=== PATIENT | female | born 1940 | race Caucasian/White ===

== ENCOUNTER → 2016-04-06 | Day surgery (SDC) | payer OTHER ==
--- NOTE | 2016-04-07 14:23 | OP ---
DATE OF OPERATION: 04/06/2016 PREOPERATIVE DIAGNOSES: Right breast mass, 11 o'clock, 4 to 7 cm from the nipple, and right axillary node suspicious. POSTOPERATIVE DIAGNOSES: Right breast mass, 11 o'clock, 4 to 7 cm from the nipple, and right axillary node suspicious. PROCEDURE: Right ultrasound-guided core biopsy of the breast mass and axillary node with clip placement. ANESTHESIA: Local. ATTENDING SURGEON: Deirdre Morales MD ESTIMATED BLOOD LOSS: Minimal. COMPLICATIONS: None. PROCEDURE: Patient was made aware of the risks and benefits of the procedure and consented. She was placed in the supine position under sterile conditions with 1% lidocaine for local anesthesia. A small renetta was made in the skin. Using a 13-gauge suction biopsy device under ultrasound guidance via a lateral approach, the right breast mass underwent 10 cores which were then submitted to Pathology. Likewise, under ultrasound guidance a "U" clip was placed into the biopsy region. The right axilla was approached under sterile conditions with 1% lidocaine for local anesthesia. A small renetta was made in the skin. Using a 13-gauge suction biopsy device under ultrasound guidance, 6 cores were obtained and submitted to Pathology. Likewise, under ultrasound guidance a bow-tie clip was placed into the biopsy region. Well tolerated by patient. Steri-Strips and sterile bandages were then applied on the patient, having tolerated the procedure well. The patient will be contacted with the results. DEIRDRE MORALES M.D. [id number]
--- NOTE | 2016-04-07 14:47 | PATH ---
Surgical Pathology Report Patient Name: DIANA COPPOLA [facility]. Rec. #: [id number] /Age/Gender: 1940 (Age: 75) / F Account: [id number] Location: [facility] Taken: 04/06/2016 Received: 04/06/2016 Reported: 04/07/2016 Physicians: Deirdre Morales M.D. Specimen(s) Received A: BREAST CORE BIOPSY RIGHT 11:00 4-7CMFN B: RIGHT AXILLARY LYMPH NODE Clinical History Highly suspicious/malignant Final Diagnosis A. 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 B. LYMPH NODE, RIGHT AXILLARY, NEEDLE CORE BIOPSY: METASTATIC POORLY DIFFERENTIATED INVASIVE DUCTAL CARCINOMA. Results of Estrogen Receptor (ER) and Progesterone Receptor (MA) studies performed on block "B1" at [facility] are as follows: ER (clone [id number] mouse monoclonal antibody by [employer]): 0% nuclear staining (Negative). MA (clone16 mouse monoclonal antibody by [employer]): 0% nuclear staining (Negative). Positive and negative controls (internal if applicable) show appropriate results. Formalin fixation time is within current ASCO/CAP recommendations for ER, MA and Her2 testing. Comment: This case was discussed with Dr. Deirdre Morales at 11 AM on April 07, 2016. Assays for HER-2 and Ki67 are pending, and a report will follow. Electronically Signed Conner Mcleod M.D. Addendum Reported: 04/08/2016 Addendum Diagnosis Results of Her2 (IHC) & Ki-67 studies performed on block "B" at [place], [place] ([id number]) are as follows: Her2 IHC (EP3 from [employer], formerly known as [id number], using Fisher Polymer Refine detection kit): 3+ POSITIVE Ki-67: ~60% (High proliferative index) Positive and negative controls (internal if applicable) show appropriate results. Conner Mcleod M.D. Gross Description A. Received in formalin labeled "right breast core 11:00, 4-7 cmfn," are 8 mcgowan-yellow, cylindrical portions of fibroadipose tissue ranging from 0.8-1.6 cm. in length and averaging 0.1 cm. in diameter. The specimen is submitted in toto in one cassette. B. Received in formalin labeled "right axillary lymph node #1," is a 2.0 x 1.5 x 0.2 cm. aggregate of multiple mcgowan-yellow, irregular to cylindrical portions of fibroadipose tissue. The formalin is filtered and the specimen is entirely submitted in one cassette. Time to formalin fixation: Not indicated Total formalin fixation time: Not indicated but between 6 and 24 hours. [facility]04/06/2016
== END | disposition home or self-care (01) ==
LOC: FRADUS-SUR 14:37
PROVIDERS: ATTEND Surgery Surgical Oncology
PROC: 0HBT3ZX Excision of Right Breast, Percutaneous Approach, Diagnostic (ICD-10-PCS; principal; 2016-04-06)
PROC: 07B Lymphatic and Hemic Systems, Excision (ICD-10-PCS; 2016-04-06)
PROC: BH47ZZZ Ultrasonography of Upper Extremity (ICD-10-PCS; 2016-04-06)
DX: N63 Unspecified lump in breast (principal); R59.9 Enlarged lymph nodes, unspecified; C50.411 Malignant neoplasm of upper-outer quadrant of right female breast; C77.3 Secondary and unspecified malignant neoplasm of axilla and upper limb lymph nodes
CPT/HCPCS: 19083; 76942-TC; 87899; 88305-TC; 88342-TC; A4648

== ENCOUNTER 2016-10-07 07:06 | Inpatient (IN) | payer OTHER ==
--- NOTE | 2016-09-23 09:35 | HP ---
Admitting History and Physical - Primary Care Physician PCP: Deirdre Morales - Admission Chief Complaint: right breast cancer History of Present Illness: Patient is a 75 yo female who noted a right breast mass in the upper outer quad on self exam in March 2016. Patient underwent a mammo at this time which was c/w two poorly defined masses in the UOQ with associated calcifications as well as skin thickening. Followup US revealed a 7.5 cm mass at 10 oclock as well as multiple right axillary enlarged lymph nodes. Patient underwent an US core bx which was c/w poorly differentiated invasive ductal with necrosis as well as right axillary metastatic invasive ductal carcinoma. Patient was then referred to a medical oncologist for a metastatic workup as well as neoadjuvant chem. Patient was recently seen S/P neoadjuvant chemo. Followup mammo and US again noted a 7 cm mass c/w the known cancer (10-12 oclock) as well as right axillary adenopathy. 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 Patient is now presenting for right mastectomy, sentinel node bx, possible andx without reconstruction. History Source: Patient Limitations to Obtaining History: No Limitations - Past Medical History Pulmonary: Yes: Pneumonia (H/O pnemonia uses inhaler prn) - Smoking History Smoking history: Former smoker Have you smoked in the past 12 months: No - Alcohol/Substance Use Hx Alcohol Use: Yes (social) Home Medications - Allergies Allergies/Adverse Reactions: Allergies Allergy/AdvReac Type Severity Reaction Status Date / Time Penicillins Allergy Unverified 03/09/12 13:05 - Home Medications Home Medications (free text): albuterol prn Family Disease History - Family Disease History Family Disease History: CA: Father (Lung ca 69 ), Sister (Breast ca 42 ) Other Family History: paternal aunt with ? breast cancer Physical Examination Constitutional: Yes: Well Nourished, Calm Respiratory: Yes: CTA Bilaterally Gastrointestinal: Yes: Other (No HSM noted) Breast(s): Yes: Other (symmetrical without skin changes or nipple discharge. Palpable right UOQ mass without deep fixation noted.) Problem List - Problems (1) Breast cancer, right Code(s): C50.911 - MALIGNANT NEOPLASM OF UNSP SITE OF RIGHT FEMALE BREAST Qualifiers: Breast location: overlapping sites of breast Patient sex: female Assessment/Plan Plan: Right mastectomy, right sentinel node bx, lymphoscintogram, needle localization of right axillary LN, possible ANDx
[2016-10-01 13:03] VITALS: BMI 28.3
[2016-10-07] MEDS ORDERED: SCOPOLAMINE HYDROBROMIDE 1 PATCH PATCH.TD72 ONE (12:12)
[2016-10-07] MEDS ORDERED: MIDAZOLAM HCL 2 MG/2 ML SINGLE DOSE VIAL ONE (12:12)
[2016-10-07] MEDS ORDERED: ONDANSETRON 4 MG/2 ML VIAL ONE (12:17)
[2016-10-07] MEDS ORDERED: DEXAMETHASONE SOD PHOSPHATE/PF 10 MG/ML SDV ONE (12:17)
[2016-10-07] MEDS ORDERED: BUPIVACAINE HCL/PF (5 MG/ML) 30 ML VIAL IJ ONE (12:18)
[2016-10-07] MEDS ORDERED: LIDOCAINE 1%/EPI 1:100000 (20 ML MULTI DOSE VIAL) ONE ×2 (12:26→12:34)
[2016-10-07] MEDS ORDERED: BUPIVACAINE HCL/PF 2.5 MG/ML - 30 ML VIAL IJ ONE (12:26)
[2016-10-07] MEDS ORDERED: CLINDAMYCIN PHOSPHATE 600 MG/4 ML VIAL ONE (13:06)
[2016-10-07] MEDS ORDERED: ONDANSETRON 4 MG/2 ML VIAL IVPUSH PRN (13:17)
[2016-10-07] MEDS ORDERED: LACTATED RINGERS SOLUTION 1,000 ML IV SCH (13:30)
[2016-10-07] MEDS ORDERED: HYDROmorphone HCL/PF 1 MG/ML VIAL (FOR PYXIS CHARGING ONLY) ONE (13:37)
[2016-10-07] MEDS ORDERED: ACETAMINOPHEN 325 MG TABLET (FP) PO PRN (15:18)
[2016-10-07] MEDS ORDERED: ONDANSETRON 4 MG/2 ML VIAL IVPB PRN (15:18)
[2016-10-07] MEDS ORDERED: ZOLPIDEM TARTRATE 5 MG TABLET PO PRN (15:18)
[2016-10-07] MEDS ORDERED: oxyCODONE HCL 5 MG TABLET PO PRN ×2 (15:25)
[2016-10-07] MEDS ORDERED: DEXTROSE 5%-0.45% SALINE 1,000 ML IV SCH (15:30)
[2016-10-07] MEDS ORDERED: oxyCODONE HCL 10 MG SUSTAINED ACTING TABLET PO SCH (22:00)
[2016-10-08 08:32] LABS: MCH 34.5 pg (25.7-33.7); MCHC 34.9 g/dl (32.0-36.0); MEAN CELL VOLUME 98.9 fl (80-96); MEAN PLT VOLUME 8.3 fl (7.5-11.1); PLATELET COUNT 285 K/MM3 (134-434); RDW 12.3 % (11.6-15.6); WHITE BLOOD COUNT 19.3 K/mm3 (4.0-10.8)
[2016-10-08] MEDS: HEPARIN NA (PORCINE) 5,000 UNITS/ML 1ML VIAL SQ SCH ×2 (09:58→21:32)
[2016-10-08] MEDS: LEVOFLOXACIN 500 MG IVPB 100 ML IVPB SCH (09:58)
--- NOTE | 2016-10-08 11:50 | PN ---
Progress Note, Physician History of Present Illness: POD #1 s/p right modified radical mastectomy - Current Medication List Current Medications: Active Medications Acetaminophen (Tylenol -) 650 mg PO Q4H PRN PRN Reason: FEVER Fentanyl (Sublimaze Injection -) 50 mcg IVPUSH [id number] PRN PRN Reason: PAIN Stop: 10/10/16 13:18 Heparin Sodium (Porcine) (Heparin -) 5,000 unit SQ BID [facility] Last Admin: 10/08/16 09:58 Dose: 5,000 unit Lactated Ringer's (Lactated Ringers Solution) 1,000 mls @ 125 mls/hr IV ASDIR GENO Dextrose/Sodium Chloride (D5-1/2ns -) 1,000 mls @ 100 mls/hr IV ASDIR GENO Levofloxacin (Levaquin 500 Mg Premixed Ivpb -) 100 mls @ 100 mls/hr IVPB DAILY [facility] Last Admin: 10/08/16 09:58 Dose: 100 mls/hr Ondansetron HCl (Zofran Injection) 4 mg IVPB Q6H PRN PRN Reason: NAUSEA AND/OR VOMITING Oxycodone HCl (Roxicodone -) 5 mg PO Q3H PRN PRN Reason: PAIN LEVEL 1-5 Oxycodone HCl (Roxicodone -) 10 mg PO Q3H PRN PRN Reason: PAIN LEVEL 6-10 Zolpidem Tartrate (Ambien -) 5 mg PO HS PRN PRN Reason: Insomnia - Objective Vital Signs: Vital Signs Temperature 97.7 F 10/08/16 06:00 Pulse Rate 82 10/08/16 06:00 Respiratory Rate 20 10/08/16 06:00 Blood Pressure 105/56 10/08/16 06:00 O2 Sat by Pulse Oximetry (%) 95 10/08/16 06:09 Constitutional: Yes: Well Nourished, No Distress Wound/Incision: Yes: Clean/Dry (JPs with serosanguineous effluent, functioning normally. Skin flaps viable, no signs of infection.) Neurological: Yes: Alert, Oriented Labs: CBC, BMP 10/08/16 07:30 Assessment/Plan Pt doing well s/p right MRM Encourage ambulation Teach MATT management Possible discharge tomorrow AM
[2016-10-09 06:30] VITALS: BP 112/49; PULSE 86; TEMP 98.1
[2016-10-09] MEDS: HEPARIN NA (PORCINE) 5,000 UNITS/ML 1ML VIAL SQ SCH (10:00)
[2016-10-09] MEDS: LEVOFLOXACIN 500 MG IVPB 100 ML IVPB SCH (10:00)
--- NOTE | 2016-10-09 10:18 | PN ---
Progress Note, Physician Chief Complaint: S/P right MRM POD#2 History of Present Illness: Patient seen this am with Dr. Morales and is without complaints and doing well. - Current Medication List Current Medications: Active Medications Acetaminophen (Tylenol -) 650 mg PO Q4H PRN PRN Reason: FEVER Fentanyl (Sublimaze Injection -) 50 mcg IVPUSH [id number] PRN PRN Reason: PAIN Stop: 10/10/16 13:18 Heparin Sodium (Porcine) (Heparin -) 5,000 unit SQ BID [facility] Last Admin: 10/08/16 21:32 Dose: 5,000 unit Lactated Ringer's (Lactated Ringers Solution) 1,000 mls @ 125 mls/hr IV ASDIR GENO Dextrose/Sodium Chloride (D5-1/2ns -) 1,000 mls @ 100 mls/hr IV ASDIR GENO Levofloxacin (Levaquin 500 Mg Premixed Ivpb -) 100 mls @ 100 mls/hr IVPB DAILY [facility] Last Admin: 10/08/16 09:58 Dose: 100 mls/hr Ondansetron HCl (Zofran Injection) 4 mg IVPB Q6H PRN PRN Reason: NAUSEA AND/OR VOMITING Oxycodone HCl (Roxicodone -) 5 mg PO Q3H PRN PRN Reason: PAIN LEVEL 1-5 Oxycodone HCl (Roxicodone -) 10 mg PO Q3H PRN PRN Reason: PAIN LEVEL 6-10 Zolpidem Tartrate (Ambien -) 5 mg PO HS PRN PRN Reason: Insomnia - Objective Vital Signs: Vital Signs Temperature 98.1 F 10/09/16 06:00 Pulse Rate 86 10/09/16 06:00 Respiratory Rate 19 10/09/16 06:00 Blood Pressure 112/49 10/09/16 06:00 O2 Sat by Pulse Oximetry (%) 98 10/09/16 06:28 Constitutional: Yes: Well Nourished, Calm Breast(s): Yes: Other (Right chest flap with ecchymosis noted otherwise incision is clean with dermabond. MATT x 2 with serosanginous discharge noted.) Labs: CBC, BMP 10/08/16 07:30 Problem List - Problems (1) Breast cancer, right Code(s): C50.911 - MALIGNANT NEOPLASM OF UNSP SITE OF RIGHT FEMALE BREAST Qualifiers: Breast location: overlapping sites of breast Patient sex: female Assessment/Plan Plan: Discharge today as per Dr. Morales Home with pain meds and axbx Teach MATT monitoring VNS to be established F/U in one week in the office
--- NOTE | 2016-10-09 10:23 | DS ---
Physical Examination Vital Signs: Vital Signs Temperature 98.1 F 10/09/16 06:00 Pulse Rate 86 10/09/16 06:00 Respiratory Rate 19 10/09/16 06:00 Blood Pressure 112/49 10/09/16 06:00 O2 Sat by Pulse Oximetry (%) 98 10/09/16 06:28 Constitutional: Yes: Well Nourished, Calm Breast(s): Yes: Other (Right chest flap with ecchymosis. Incision is clean without discharge. MATT with serosanginous discharge) Labs: CBC, BMP 10/08/16 07:30 Discharge Summary Reason For Visit: RIGHT BREAST CA Current Active Problems Breast cancer, right (Acute) Condition: Good - Instructions Diet, Activity, Other Instructions: BREAST SURGERY INSTRUCTIONS Kenneth Avila M.D., YAA Avila M.D., YAA Coates M.D., FACS 1. Please call the office at to make a follow up appointment with your surgeon. This number can be also used for any urgent issues you may have. 2. Call us immediately if any of the following occur: *Bleeding from the incision or drain site (a small amount is normal) *Fever or chills *Redness and worsening tenderness around the surgical site *Drainage of pus or fluid from the incision or drain site 3. You may change the surgical dressing two (2) days after your surgery, and may shower then. If you have drains, you may shower after they have been removed, until then take a sponge bath. 4. It is normal for there to be some bruising and tenderness around the surgical site, and the breast may also be firm in this area. 5. Please wear a comfortable bra (sports or surgical bra) all day and all night until your first follow-up visit with your surgeon. 6. The pain medicine you have been prescribed may make you constipated; make sure you drink plenty of water. You may use an over the counter laxative if needed. 7. You may resume your normal diet after surgery, although you may want to avoid rich foods for the first twenty-four (24) hours after surgery. Alcoholic drinks should be avoided while taking the prescribed pain medicine. 8. You may resume normal activities as long as there is no discomfort, but do not do upper body exercises until after your follow-up appointment. Do not lift anything heavier than a large phone book. You may resume driving once you have stopped taking the prescribed pain medicine and feel comfortable doing arm movements. Referrals: Deirdre Morales MD [Staff Physician] - Disposition: HOME - Home Medications Comprehensive Discharge Medication List: Ambulatory Orders Levofloxacin [Levaquin] 500 mg PO DAILY 20 Days 10/09/16 Oxycodone HCl/Acetaminophen [Percocet 5-325 mg Tablet -] 1 - 2 tab PO Q6H #30 tablet MDD 6 10/09/16
--- NOTE | 2016-10-10 07:06 | OP ---
DATE OF OPERATION: 10/07/2016 PREOPERATIVE DIAGNOSIS: Right breast cancer with axillary metastasis. PROCEDURE: Right modified radical mastectomy with right sentinel node biopsy, no reconstruction. ANESTHESIA: General intubated. ATTENDING SURGEON: Lili Coates MD JUVENILE PROBATION OFFICER: LAVINIA Garcia ESTIMATED BLOOD LOSS: 200 mL. COMPLICATIONS: None. DESCRIPTION OF PROCEDURE: The patient is made aware of the risks and benefits of the procedure and consented. Preoperatively, she went to nuclear medicine where technetium was injected for lymphatic mapping as well as radiology where a wire was placed next to the index axillary node. She was then placed in supine position on the operating room table. After general anesthesia was induced, the patient was intubated. Then 2.5 mL of 1% Isosulfan Blue was locally infiltrated into the peritumoral tissues. The operative site was then prepped and draped in the usual sterile fashion. Waiting approximately 10 minutes with gently manual compression, a curvilinear incision was made in the right axilla. Using blunt and sharp dissection, tissues were dissected down to the wire. The wire was withdrawn through the puncture site into the wound, and tissues were widely excised. In addition, there were other firm lymph nodes that were suspicious for metastasis. These were all submitted and incidentally were also noted to be hot with the Neoprobe. Frozen sections reported as positive for metastasis. Including this prior incision, elliptical incision was made around the nipple and skin overlying the breast cancer after injecting the breast with a dilute solution of 1% lidocaine with epinephrine. Using the face lift scissors, flaps were made superior to the clavicle, inferior to the inframammary fold, and lateral to the latissimus dorsi. Using electrocautery, the breast tissue was taken off the pectoralis muscle extending laterally to the edge of the pectoralis muscle. The clavipectoral fascia was incised revealing the axillary vein. Laterally, the long thoracic nerve was identified and retracted medially along its length. Laterally, the thoracodorsal trunk was also identified, and the tissues between the two were bluntly and sharply dissected free inferiorly including all of the axillary node and tissue. The right breast was then submitted with a short superior long lateral labelled as right modified radical mastectomy. Looking at the high axillary nodes, there were some firm, suspicious nodes, which were bluntly and sharply surgically excised and submitted as right axillary high nodes. The wound was copiously irrigated with normal saline. Hemostasis maintained by electrocautery and hemoclip. Investigation of the axilla revealed a long thoracic and thoracodorsal trunk were left intact. Via 2 inferior stab wounds, 2 Robin-Landaverde drains were placed and sutured to the skin with 3-0 silk. The skin was then closed with interrupted 3-0 Vicryl followed by running subcuticular 4-0 Monocryl. Dermabond as well as a sterile dressing with a compression bra were then applied, and the patient having tolerated the procedure well, was transferred to the recovery room in excellent condition. LILI HUFFMAN M.D. [id number]
--- NOTE | 2016-10-11 12:50 | PATH ---
Surgical Pathology Report Patient Name: DIANA COPPOLA [facility]. Rec. #: [id number] /Age/Gender: 1940 (Age: 75) / F Account: [id number] Location: [facility] Taken: 10/07/2016 Received: 10/07/2016 Reported: 10/11/2016 Physicians: Deirdre Morales M.D. Specimen(s) Received A: RIGHT AXILLARY SENTINEL NODES. FS B: HIGH RIGHT AXILLARY NODES C: RIGHT MODIFIED RADICAL MASTECTOMY Clinical History Mastectomy: Invasive carcinoma Intraoperative Consult Diagnosis A.Right axillary sentinel nodes, frozen section: Two lymph nodes, positive for metastatic carcinoma (2/2). [place] 10/07/16 Final Diagnosis A. AXILLARY SENTINEL NODES, RIGHT, EXCISION (FS): TWO LYMPH NODES, POSITIVE FOR METASTATIC CARCINOMA (2/2); METASTATIC CARCINOMA ALMOST ENTIRELY REPLACES THE INVOLVED LYMPH NODES, WITH THE LARGEST FOCI OF METASTATIC CARCINOMA INVOLVING THE TWO NODES MEASURING 9 MM AND 7 MM IN GREATEST DIMENSION, RESPECTIVELY (MACROMETASTASES). EXTRANODAL EXTENSION IS PRESENT. B. HIGH AXILLARY NODES, RIGHT, EXCISION: METASTATIC CARCINOMA INVOLVING ONE OF SIX LYMPH NODES (1/6); THE LARGEST FOCUS OF METASTATIC CARCINOMA MEASURES 1 CM IN GREATEST DIMENSION (MACROMETASTASIS). EXTRANODAL EXTENSION IS PRESENT. C. BREAST, RIGHT, MODIFIED RADICAL MASTECTOMY: INVASIVE DUCTAL CARCINOMA, POORLY DIFFERENTIATED (TUBULE SCORE: 3/3, NUCLEAR GRADE: 2/3, MITOTIC SCORE: 2/3; TOTAL VARUN SCORE: 8/9), MEASURING 5.8 CM IN GREATEST DIMENSION (GROSS MEASUREMENT). FOCAL AREAS OF DENSE HYALINIZING FIBROSIS (~10% OF THE TUMOR BED TISSUE) ARE PRESENT ADMIXED WITH THE PREDOMINANTLY VIABLE CARCINOMA, SUGGESTIVE OF MINIMAL TREATMENT-RELATED CHANGES. FOCAL DUCTAL CARCINOMA IN SITU (DCIS), SOLID TYPE, HIGH NUCLEAR GRADE IS PRESENT ADMIXED WITH INVASIVE CARCINOMA A MINOR COMPONENT. SURGICAL MARGINS ARE UNINVOLVED BY CARCINOMA; CARCINOMA IS AT 1 CM FROM THE CLOSEST (DEEP) MARGIN; SKELETAL MUSCLE IS PRESENT AT THE DEEP MARGIN AND IS UNINVOLVED BY CARCINOMA. NIPPLE (INVERTED) AND SKIN ARE UNINVOLVED BY CARCINOMA. LYMPHOVASCULAR INVASION IS IDENTIFIED. METASTATIC CARCINOMA INVOLVING FIVE OF TWENTY-ONE AXILLARY LYMPH NODES (5/21); ALL FIVE LYMPH NODES ARE ALMOST ENTIRELY REPLACED BY METASTATIC CARCINOMA (MACROMETASTASES), WITH THE LARGEST FOCUS OF METASTATIC CARCINOMA MEASURING 1.4 CM IN GREATEST DIMENSION. EXTRANODAL EXTENSION IS PRESENT. PATHOLOGIC STAGE (ypTNM): ypT3 ypN2a. SEE ALSO INVASIVE CARCINOMA CASE SUMMARY BELOW. Comments Breast Invasive Carcinoma: Surgical Pathology Cancer Case Summary Based on AJCC/UICC TNM, 7th edition Procedure _X_ Total mastectomy (including nipple and skin) Lymph Node Sampling _X_ Kermit lymph node(s) _X_ Axillary dissection Specimen Laterality _X_ Right Tumor Size: Size of Largest Invasive Carcinoma: 5.8 cm Tumor Focality _X_ Single focus of invasive carcinoma Macroscopic and Microscopic Extent of Tumor Skin _X_ Invasive carcinoma does not invade into the dermis or epidermis Nipple _X_ DCIS does not involve the nipple epidermis Ductal Carcinoma In Situ (DCIS) _X_ DCIS is present _X_ as a minor component (< 25% of tumor) Histologic Type of Invasive Carcinoma : _X_ Invasive carcinoma of no special type (ductal, not otherwise specified) Histologic Grade: ([place] Histologic Score) Tubular Differentiation _X_ Score 3 Nuclear Pleomorphism _X_ Score 3 Mitotic Rate _X_ Score 2 Overall Grade _X_ Grade 3: scores of 8 or 9 (poorly differentiated) Margins _X_ Margins uninvolved by invasive carcinoma Distance from closest margin: 1.0 cm from deep margin _X_ Margins uninvolved by DCIS Distance from closest margin: > 1 cm from deep margin Lymph-Vascular Invasion _X_ Present Lymph Nodes Total number of lymph nodes examined (sentinel and nonsentinel): 29 Number of sentinel lymph nodes examined: 2 Number of lymph nodes with macrometastases ( > 2 mm): 8 Number of lymph nodes with micrometastases (>0.2 mm to 2 mm and/or >200cells):0 Number of lymph nodes with isolated tumor cells (=0.2 mm and =200 cells): 0 Size of largest metastatic deposit (if present): 1.4 cm Extranodal Extension _X_ Present Pathologic Staging (pTNM) Primary Tumor (Invasive Carcinoma): ypT3 Regional Lymph Nodes (pN): ypN2a Biomarker Studies Results of ER, WI, Her2 & Ki67 studies will be reported separately in an addendum. Electronically Signed Selene Espinal M.D. Addendum Reported: 10/22/2016 Addendum Diagnosis Results of ER and WI studies performed on block C6 at [facility] are as follows: ER (clone [id number] mouse monoclonal antibody by [employer]): 0 % nuclear (Negative). WI (clone16 mouse monoclonal antibody by [employer]) : 0 % nuclear staining (Negative). Results of Her2 IHC, Ki67 and FISH studies performed on block C6 at [place], [place] ([id number] and [id number]) are as follows: Her2 : IHC (EP3 from [employer], formerly known as [id number], using Fisher Polymer Refine detection kit): 1+ (Negative). Ki67: ~60% (High). Her2 (FISH): Her2: 2.7 CEP17: 2.2 Ratio: 1.2 Interpretation: Negative. Positive and negative controls (internal if applicable) show appropriate results. Formalin fixation and cold ischemic times are within current ASCO/CAP recommendations for ER, WI and Her2 testing. Selene Espinal M.D. Gross Description A. Received fresh for frozen section evaluation, labeled "right axillary sentinel nodes" are two lymph nodes with attached adipose tissue, measuring 1.5 x 1.0 x 0.4 cm and 0.8 x 2.7 x 0.3 cm. The lymph nodes are bisected and frozen section is performed on one half of each lymph node. The specimen is entirely submitted in four cassettes as follows: FSA1, FSA2: frozen section residues of the two lymph nodes; A3, A4: remaining halves of the two lymph nodes. B. Received in formalin labelled "high right axillary nodes" is a 4.5 x 2.8 x to 1.4 cm aggregate of yellow fatty tissue containing 6 possible lymph nodes. The largest of these measures 1.7 cm in greatest dimension, and has an indurated rosario cut surface grossly consistent with metastatic carcinoma. All the lymph nodes are submitted as follows: B1- B4: one bisected lymph node, each; B5:2 possible lymph nodes. C. Received in formalin, labeled "right modified radical mastectomy," is a 1302 gram, 22 x 20 x 4.5 cm right mastectomy specimen with a short suture marking the superior aspect and a long suture marking the lateral aspect of the specimen, per the surgeon. The overlying ellipse of skin measures 19 x 12.5 cm and contains a nipple and areola. The nipple is inverted. An attached 10 x 10 x 2 5 cm portion of fat consistent with axillary tissue is present. The deep margin is inked black and the anterior soft tissue margin is inked blue. A palpable mass is present in the upper outer quadrant (UOQ) underlying the skin. The specimen is serially sectioned from lateral to medial. Sectioning reveals a 5.8 x 3.7 x 3.2 cm firm mass in the UOQ. The mass is at 0.7 cm from the deep margin and at 2.2 cm from the overlying skin. Remaining breast tissue is comprised of scant fibrous tissue interspersed with adipose tissue. Examination of the axillary tissue reveals multiple possible lymph nodes some of which contain grossly obvious tumor. Also present within the specimen container is a 9 x 9 x 3 cm aggregate of portions of skin with attached yellow adipose tissue. Well Testing Operator sections are submitted in 21 cassettes as follows: 1& 2: nipple, 3: skin, 4: tumor with deep margin, 5-7: u.s. representative sections of tumor, 8:uppe outer quadrant, 9: lower outer quadrant, 10: upper inner quadrant, 11: lower inner quadrant, 12-14: u.s. representative sections of positive lymph nodes (one lymph node per cassette), 15-20: multiple possible lymph nodes, 21-u.s. representative sections from additional tissue within specimen container. [facility]/10/08/2016 Time to formalin fixation: 10 minutes Total formalin fixation time: Approximately 28 hours. [facility]/10/08/2016
== END 2016-10-09 11:25 | disposition home health service (06) | DRG 580 ==
LOC: FM/S 07:06
PROVIDERS: ADMIT Surgery Surgical Oncology; ATTEND Surgery Surgical Oncology
PROC: 0HTT0ZZ Resection of Right Breast, Open Approach (ICD-10-PCS; principal; 2016-10-07 13:14)
PROC: 07B50ZX Excision of Right Axillary Lymphatic, Open Approach, Diagnostic (ICD-10-PCS; 2016-10-07 13:14)
DX: C50.911 Malignant neoplasm of unspecified site of right female breast (principal); C79.89 Secondary malignant neoplasm of other specified sites; Z87.891 Personal history of nicotine dependence
CPT/HCPCS: 19281; 36415; 78195-TC; 85027; 88307-TC; 88331-TC; 94010; A9541; J1644

== ENCOUNTER 2017-04-23 17:22 | Emergency (ER) | payer OTHER ==
[2017-04-23 17:39] VITALS: PULSE 96; TEMP 97.8; BMI 30.2
--- NOTE | 2017-04-23 17:50 | PDOC ---
History of Present Illness - History of Present Illness Initial Comments: 04/23/17 19:02 Patient is a 76 F who was BIBA from [facility] hematology oncology clinic, with PMHx of hypertension and breast cancer, who presents for an allergic reaction s/p platelet transfusion. Patient went to see her oncologist today who was going to begin additional chemo. Patient was found to have low platelet count so they began transfusion. Patient reports immediately experiencing itchy skin and ears in addition to wheezing. She was administered Benadryl and steroids intravenously at the office. Symptoms resolved, however she was still concerned the symptoms could reappear and wanted to be checked in the ER. Family History: Lung cancer, breast cancer diabetes. Surgical Hx: Chemo -->right mastectomy (August 2016) radiation Social Hx: former smoker, social EtOH use. <Arlen Gaffney - Last Filed: 04/23/17 19:03> <Lloyd Gomez - Last Filed: 04/24/17 07:35> - General Chief Complaint: Allergic Reaction Stated Complaint: allergic reaction Time Seen by Provider: 04/23/17 17:36 Past History <Arlen Gaffney - Last Filed: 04/23/17 19:03> - Past Medical History Anemia: No Asthma: No Cancer: Yes (Right Breast) Cardiac Disorders: No CVA: No COPD: No CHF: No Dementia: No Diabetes: No GI Disorders: No Disorders: No HTN: No Hypercholesterolemia: No Liver Disease: No Seizures: No Thyroid Disease: No - Surgical History Abdominal Surgery: No Appendectomy: No Cardiac Surgery: No Cholecystectomy: No Lung Surgery: No Neurologic Surgery: No Orthopedic Surgery: No - Suicide/Smoking/Psychosocial Hx Smoking History: Never smoked Have you smoked in the past 12 months: No Hx Alcohol Use: Yes (occasional) Drug/Substance Use Hx: No Substance Use Type: None Hx Substance Use Treatment: No <Lloyd Gomez - Last Filed: 04/24/17 07:35> - Past Medical History Allergies/Adverse Reactions: Allergies Allergy/AdvReac Type Severity Reaction Status Date / Time Penicillins Allergy Verified 04/23/17 17:23 adhesive tape Allergy Uncoded 10/01/16 13:09 shellfish Allergy Uncoded 10/01/16 12:56 Home Medications: Ambulatory Orders NK [No Known Home Medication] 04/23/17 Review of Systems - Review of Systems Comments:: 04/23/17 19:03. CONSTITUTIONAL: Absent: fever, no chills, no fatigue EYES: Absent: visual changes ENT: Absent: ear pain, no sore throat CARDIOVASCULAR: Absent: chest pain, no palpitations RESPIRATORY: Absent: cough, no SOB, hemoptysis GI: Absent: abdominal pain, no nausea, no vomiting, no constipation, no diarrhea, no bloody stools. GENITOURINARY: Absent: dysuria, no frequency, no hematuria MUSCULOSKELETAL: Absent: back pain, no arthralgia, no myalgia SKIN: Present:Petechial rash on the arms and legs (several weeks) <Arlen Gaffney - Last Filed: 04/23/17 19:03> *Physical Exam - Vital Signs Last Vital Signs Temp Pulse Resp BP Pulse Ox 97.8 F 96 H 16 135/77 97 04/23/17 17:23 04/23/17 17:23 04/23/17 17:23 04/23/17 17:49 04/23/17 17:23 - Physical Exam Comments: GENERAL: Well developed, well nourished. Awake, alert and oriented. In no acute distress. Asymptomatic at present. HEENT: Normocephalic, atraumatic. PERRLA, EOMI. No conjunctival pallor. Sclera are non- icteric. Moist mucous membranes. Oropharynx is clear with no sign of swelling or edema. NECK: Supple without mass. Full ROM. No JVD. Carotid pulses 2+ and symmetric, without bruits. No thyromegaly. No lymphadenopathy. Denies irritations, itching , or swelling of the throat, lips, or face. CARDIOVASCULAR: Regular rate and rhythm. No murmurs, rubs, or gallops. No chest tightness. Distal pulses are 2+ and symmetric. PULMONARY: No evidence of respiratory distress. Lungs clear to auscultation bilaterally. No wheezing, rales or rhonchi. ABDOMINAL: Soft. Non-tender. Non-distended. No rebound or guarding. No organomegaly. Normoactive bowel sounds. MUSCULOSKELETAL Normal range of motion at all joints. No bony deformities or tenderness. No CVA tenderness. EXTREMITIES: No cyanosis. No clubbing. No edema. No calf tenderness. SKIN: Warm and dry. Normal capillary refill. No rashes. No jaundice. Scattered petechiae over arms and legs. Some excoriations.no sign of infection NEUROLOGICAL: Alert, awake, appropriate. Cranial nerves 2-12 intact. No deficits to light touch and temperature in face, upper extremities and lower extremities. No motor deficits in the in face, upper extremities and lower extremities. Normoreflexic in the upper and lower extremities. Normal speech. Toes are downgoing bilaterally. Gait is normal without ataxia. PSYCHIATRIC: Cooperative. Good eye contact. Appropriate mood and affect. <Arlen Gaffney - Last Filed: 04/23/17 19:03> - Vital Signs Last Vital Signs Temp Pulse Resp BP Pulse Ox 97.8 F 96 H 16 139/104 97 04/23/17 17:23 04/23/17 17:23 04/23/17 17:23 04/23/17 17:23 04/23/17 17:23 <Lloyd Gomez - Last Filed: 04/24/17 07:35> ED Treatment Course - LABORATORY CBC & Chemistry Diagram: 04/23/17 18:00 - ADDITIONAL ORDERS Additional order review: 04/23/17 18:00 RBC 3.80 D MCV 93.8 MCHC 36.0 RDW 11.1 L MPV 5.3 L Neutrophils % No Result Required. Lymphocytes % No Result Required. <Arlen Gaffney - Last Filed: 04/23/17 19:03> - LABORATORY CBC & Chemistry Diagram: 04/23/17 18:00 <Lloyd Gomez - Last Filed: 04/24/17 07:35> Medical Decision Making - Medical Decision Making 04/24/17 07:32 Patient had a platelet transfusion in the office of her oncologist today. She experienced in early transfusion reaction consisting of heat and itching of her ears and skin, and mild wheezing. She was administered Benadryl and steroids intravenously, she improved, and she was sent home from the office. However, she was concerned that the symptoms could recur, and presented to the emergency room for further evaluation and treatment She was asymptomatic at the time of presentation. There was no swelling edema of the oropharynx, lips, or face. There was no irritation or discomfort in the throat. There was no itching or skin rash. There was no respiratory distress, chest tightness, or wheezing ALLERGIC reaction seems to have subsided. Observed for a prolonged period of time in the ER without recurrence of symptoms. Platelet count was repeated and was 3000. Petechiae were present on the extremities, but these had been noted for over one week. There are no other signs of bleeding. <Lloyd Gomez - Last Filed: 04/24/17 07:35> *DC/Admit/Observation/Transfer <Arlen Gaffney - Last Filed: 04/23/17 19:03> - Discharge Dispostion Admit: No <Lloyd Gomez - Last Filed: 04/24/17 07:35> Diagnosis at time of Disposition: Thrombocytopenia Transfusion reaction Qualifiers: Encounter type: initial encounter Qualified Code(s): T80.92XA - Unspecified transfusion reaction, initial encounter - Discharge Dispostion Disposition: HOME Condition at time of disposition: Improved - Patient Instructions Printed Discharge Instructions: DI for Adverse Drug Reaction -- Allergic Additional Instructions: Stable at home, rest, avoid circumstances that could lead to injury or fall. Follow-up with your oncologist as scheduled. You will need further treatment for your low platelets Any recurrent reaction should be treated immediately with Benadryl and you should return to the emergency room.
[2017-04-23 18:17] VITALS: BP 135/77
[2017-04-23 18:20] LABS: HEMATOCRIT 35.6 % (32.4-45.2); HEMOGLOBIN 12.8 GM/dl (10.7-15.3); MCH 33.8 pg (25.7-33.7); MEAN CELL VOLUME 93.8 fl (80-96); RDW 11.1 % (11.6-15.6); WHITE BLOOD COUNT 9.3 K/mm3 (4.0-10.8)
[2017-04-23 18:27] LABS: MEAN PLT VOLUME 5.3 fl (7.5-11.1)
[2017-04-23 18:37] LABS: PLATELET COUNT 3 K/MM3 (134-434)
[2017-04-23 18:47] LABS: PLATELET ESTIMATE DECREASED
== END 2017-04-23 19:17 | disposition home or self-care (01) ==
LOC: FER 17:22
DX: T80.92XA Unspecified transfusion reaction, initial encounter (principal); X58.XXXA Exposure to other specified factors, initial encounter; Y93.89 Activity, other specified; Y92.531 Health care provider office as the place of occurrence of the external cause; C50.912 Malignant neoplasm of unspecified site of left female breast; D69.6 Thrombocytopenia, unspecified
CPT/HCPCS: 36415; 85025; 99282-25

== ENCOUNTER 2017-07-27 07:32 | Day surgery (SDC) | payer OTHER ==
[2017-07-23 09:50] VITALS: BMI 29.6
--- NOTE | 2017-07-23 14:07 | HP ---
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 2016. She needs a port for Herceptin. History Source: Patient Limitations to Obtaining History: No Limitations - Past Medical History Pulmonary: Yes: Pneumonia (H/O pnemonia uses inhaler prn) - Past Surgical History Past Surgical History: Yes: Mastectomy (Right Modified radical mastectomy neoadjuvant chemotherapy on Herceptin currently with PIc line 5.8 cm poorly diff IDC 8+ 29 nodes) - Advance Directives Advance Directives: Yes: Health Care Proxy - Smoking History Smoking history: Former smoker Have you smoked in the past 12 months: No If you are a former smoker, when did you quit?: 50 YRS AGO - Alcohol/Substance Use Hx Alcohol Use: Yes (occasional) Home Medications - Allergies Allergies/Adverse Reactions: Allergies Allergy/AdvReac Type Severity Reaction Status Date / Time Penicillins Allergy Verified 07/23/17 09:24 adhesive tape Allergy Uncoded 07/23/17 09:24 shellfish Allergy Uncoded 07/23/17 09:24 - Home Medications Home Medications: Ambulatory Orders Cyanocobalamin (Vitamin B-12) [Vitamin B-12] 2,500 mcg SL DAILY 07/23/17 Multivitamin [Multiple Vitamins] 1 each PO DAILY 07/23/17 Family Disease History - Family Disease History Family Disease History: CA: Father (Lung ca 69 ), Sister (Breast ca 42 ) Physical Examination Constitutional: Yes: No Distress Breast(s): Yes: Other (Right chest wall radiation changes w?o excoriation no recurrence, left breast diffusely nodular and dense no masses or adenopathy) Problem List - Problems (1) Breast cancer, right Code(s): C50.911 - MALIGNANT NEOPLASM OF UNSP SITE OF RIGHT FEMALE BREAST Qualifiers: Breast location: overlapping sites of breast Patient sex: female Assessment/Plan Life port insertion
[2017-07-27] MEDS ORDERED: HEPARIN NA (PORCINE) 5,000 UNITS/ML 1ML VIAL ONE (08:10)
[2017-07-27] MEDS ORDERED: LIDOCAINE HCL 1%, 10 MG/ML (20ML VIAL) ONE (08:10)
[2017-07-27] MEDS ORDERED: MIDAZOLAM HCL 2 MG/2 ML SINGLE DOSE VIAL ONE ×2 (08:52→09:18)
[2017-07-27] MEDS ORDERED: SUCCINYLCHOLINE CHLORIDE 200 MG/10 ML VIAL ONE (08:52)
[2017-07-27] MEDS ORDERED: DEXAMETHASONE SOD PHOSPHATE 4 MG/1 ML VIAL ONE (08:53)
[2017-07-27] MEDS ORDERED: CLINDAMYCIN PHOSPHATE 600 MG/4 ML VIAL ONE ×2 (08:53→09:07)
[2017-07-27] MEDS ORDERED: ONDANSETRON 4 MG/2 ML VIAL ONE (08:53)
[2017-07-27] MEDS ORDERED: ACETAMINOPHEN INJECTION 100 ML IVPB ONE (08:59)
[2017-07-27] MEDS ORDERED: PROPOFOL 20 ML ONE ×4 (09:07→09:39)
[2017-07-27] MEDS ORDERED: KETOROLAC TROMETHAMINE 30 MG/1 ML VIAL IVPUSH PRN (10:14)
[2017-07-27] MEDS ORDERED: ONDANSETRON 4 MG/2 ML VIAL IVPUSH PRN (10:14)
[2017-07-27] MEDS ORDERED: DESFLURANE GAS 240 ML BOTTLE IH ONE (10:14)
[2017-07-27] MEDS ORDERED: DEXTROSE 5%-0.45% SALINE 1,000 ML IV SCH (10:15)
[2017-07-27 10:30] VITALS: TEMP 97.7
[2017-07-27 15:14] VITALS: BP 132/66; PULSE 72
--- NOTE | 2017-07-27 16:14 | OP ---
DATE OF OPERATION: 07/27/2017 PREOPERATIVE DIAGNOSIS: Right breast cancer. POSTOPERATIVE DIAGNOSIS: Right breast cancer. PROCEDURE: Left subclavian single-lumen LifePort insertion and left arm peripherally inserted central catheter line removal. ANESTHESIA: IV sedation with local. ATTENDING SURGEON: Lili Morales MD SILVERWARE CLEANER: LAVINIA Garcia ESTIMATED BLOOD LOSS: Minimal. COMPLICATIONS: None. DESCRIPTION OF PROCEDURE: Patient was made of the risks and benefits of the procedure and consented. She was placed in a supine position. After IV sedation was administered, the left arm PICC line was carefully removed in its entirety and a sterile dressing applied. The operative site was then prepped and draped in the usual sterile fashion, and 1% lidocaine was used for local anesthesia. Using Seldinger technique, the left subclavian vein was easily localized, and a wire was placed in good position as documented by fluoroscopy. Incisions were made over the puncture site and slightly inferior. Due to the inferior incision, a larger skin flap was made. Catheter was tunneled from the larger incision to the smaller puncture incision and fashioned to the proper length. The proximal catheter was then attached to the port head and placed into the skin pocket. Under direct fluoroscopic control, dilator and introducer were placed over the wire into good position. The dilator and wire were then removed, and the catheter was placed into the introducer which was then stripped away. By fluoroscopy, the catheter was in good position, and there was easy withdrawal of blood and infusion of heparinized saline. Next, 1 mL of concentrated heparinized saline was infused into the port head. The port head was then sutured to the deep tissues with 2-0 Prolene. The wound was then copiously irrigated with normal saline. Hemostasis maintained by electrocautery. The skin was closed with interrupted 3-0 Vicryl, followed by a running subcuticular 4-0 Monocryl. Dermabond was then applied, and the patient, having tolerated the procedure well, was transferred to the recovery room in excellent condition. LILI MORALES M.D. [id number]
--- NOTE | 2017-07-29 14:52 | PATH ---
Surgical Pathology Report Patient Name: DIANA COPPOLA [facility]. Rec. #: [id number] /Age/Gender: 1940 (Age: 76) / F Account: [id number] Location: [facility] Taken: 07/27/2017 Received: 07/27/2017 Reported: 07/29/2017 Physicians: Deirdre Morales M.D. Specimen(s) Received PICC LINE EXPLANT Clinical History Breast cancer Final Diagnosis CATHETER, PICC LINE, REMOVAL: CATHETER. MACROSCOPIC DIAGNOSIS. Electronically Signed Sheba Lion M.D. Gross Description Received fresh labeled "Picc line," is a 52 cm in length double lumen catheter with attached gauze material. No soft tissue is present. No sections are submitted, gross only. /07/28/2017 [facility]07/28/2017
== END 2017-07-27 12:40 | disposition home or self-care (01) ==
LOC: FASU 07:32
PROVIDERS: ATTEND Surgery Surgical Oncology
PROC: B517ZZA Fluoroscopy of Left Subclavian Vein, Guidance (ICD-10-PCS; 2017-07-27)
PROC: 05PYX3Z Removal of Infusion Device from Upper Vein, External Approach (ICD-10-PCS; 2017-07-27)
PROC: 05H633Z Insertion of Infusion Device into Left Subclavian Vein, Percutaneous Approach (ICD-10-PCS; principal; 2017-07-27 10:02)
DX: C50.911 Malignant neoplasm of unspecified site of right female breast (principal); Z90.11 Acquired absence of right breast and nipple; Z87.891 Personal history of nicotine dependence
CPT/HCPCS: 71045-TC-FY; 76000-TC-FY; 88300-TC; 94760; J0131; J1644

== ENCOUNTER 2018-05-24 12:40 | Day surgery (SDC) | payer OTHER ==
[2018-05-12 12:42] VITALS: BMI 30.2
--- NOTE | 2018-05-16 10:09 | HP ---
Admitting History and Physical - Primary Care Physician PCP: Deirdre Morales - Admission Chief Complaint: right breast cancer with axillary mets S/P chemotherapy History of Present Illness: 77 year old postmenapausal female S/P right modified radical mastectomy W/O reconstruction for a 5.8 cm invasive ductal carcinoma ER/UT- HER2 +, 8+/29 nodes.09/2016. Neoadjuvant chemotherapy PO radiation and herceptin. Here for port removal per Dr Balderas. History Source: Patient Limitations to Obtaining History: No Limitations - Past Medical History Pulmonary: Yes: Pneumonia (H/O pnemonia uses inhaler prn) - Past Surgical History Past Surgical History: Yes: Mastectomy (Right Modified radical mastectomy neoadjuvant chemotherapy on Herceptin currently with PIc line 5.8 cm poorly diff IDC 8+ 29 nodes) Additional Past Surgical History: Right MRM neoadjuvant chemo RT herceptin no reconstruction KATRINA VUS 09/2016 - Smoking History Smoking history: Former smoker Have you smoked in the past 12 months: No If you are a former smoker, when did you quit?: 50 YRS AGO - Alcohol/Substance Use Hx Alcohol Use: Yes (occasional) Home Medications - Allergies Allergies/Adverse Reactions: Allergies Allergy/AdvReac Type Severity Reaction Status Date / Time Penicillins Allergy Verified 07/23/17 09:24 adhesive tape Allergy Uncoded 07/23/17 09:24 shellfish Allergy Uncoded 07/23/17 09:24 - Home Medications Home Medications: Ambulatory Orders Cyanocobalamin (Vitamin B-12) [Vitamin B-12] 2,500 mcg SL DAILY 07/23/17 Multivitamin [Multiple Vitamins] 1 each PO DAILY 07/23/17 Eltrombopag Olamine [Promacta] 100 mg PO DAILY 03/31/18 Omeprazole 40 mg PO DAILY 03/31/18 Prednisone 10 mg PO Q48H 03/31/18 Family Disease History - Family Disease History Family Disease History: CA: Father (Lung ca 69 ), Sister (Breast ca 42 ) Other Family History: pat aunt 90 ?breast ca Physical Examination Constitutional: Yes: Well Nourished Breast(s): Yes: Other (No chest wall recurrence post RT changes. Left breast dissusely nodular no masses or adenopathy palapble bilaterally) Assessment/Plan Life port removal
[2018-05-24] MEDS ORDERED: BUPIVACAINE HCL 0.25% 125 MG/50 ML VIAL ONE (14:35)
[2018-05-24] MEDS ORDERED: LIDOCAINE HCL 1% PRESERVATIVE FREE - 30ML VIAL ONE (14:35)
[2018-05-24] MEDS ORDERED: BUPIVACAINE HCL/PF 0.25% (2.5MG/ML) 10 ML VIAL IJ ONE (15:02)
[2018-05-24] MEDS ORDERED: LIDOCAINE 1%/EPI 1:100000 (50 ML MULTI DOSE VIAL) NR ONE (15:02)
[2018-05-24 16:08] VITALS: BP 134/64; PULSE 89; TEMP 98
--- NOTE | 2018-05-24 19:36 | OP ---
DATE OF OPERATION: 05/24/2018 PREOPERATIVE DIAGNOSIS: Right breast cancer. POSTOPERATIVE DIAGNOSIS: Right breast cancer. PROCEDURE: Excision of left chest wall LifePort. ANESTHESIA: Local. SURGEON: Lili Morales MD GROCERY DEPARTMENT MANAGER: LAVINIA Watkins ESTIMATED BLOOD LOSS: Minimal. COMPLICATIONS: None. DESCRIPTION OF PROCEDURE: The patient was made aware of the risks and benefits of the procedure and consented. She was placed in a supine position. The operative site was prepped and draped in the usual sterile fashion. Then 1% lidocaine mixed with 0.5% bupivacaine in a 1:1 ratio and was used for anesthesia. An oblique incision was made over the prior incision. Using sharp dissection, the port head was excised including its sutures, and the catheter came out in its entirety. The catheter lumen was then oversewn with a [id number] suture of 3-0 Vicryl. The wound was copiously irrigated with normal saline. Hemostasis was maintained by electrocautery. The wound was then closed with deep 3-0 Vicryl followed by a running subcuticular 4-0 Monocryl. Dermabond was then applied, and the patient having tolerated the procedure well was discharged in good condition. LILI MORALES M.D. [id number]
--- NOTE | 2018-05-27 18:01 | PATH ---
Surgical Pathology Report Patient Name: DIANA COPPOLA [facility]. Rec. #: [id number] /Age/Gender: 1940 (Age: 77) / F Account: [id number] Location: [facility] AM[facility] Taken: 05/24/2018 Received: 05/25/2018 Reported: 05/27/2018 Physicians: Deirdre Morales M.D. Specimen(s) Received PORT A CATH Clinical History Left breast cancer Final Diagnosis AMIRA CATH, REMOVAL: PORT-A-CATH. MACROSCOPIC DIAGNOSIS. Electronically Signed Sheba Lion M.D. Gross Description Received fresh labeled "Port-A-Cath," is a 2.6 x 2.4 x 1.4 cm purple, triangular device, consistent with a amira cath. The Port-A-Cath displays a 19 cm in length portion of white tubing extending from one aspect. No soft tissue is present. No sections are submitted, gross only. /05/26/2018 [place]05/26/2018
== END 2018-05-24 16:00 | disposition home or self-care (01) ==
LOC: FASU 12:40
PROVIDERS: ATTEND Surgery Surgical Oncology
PROC: 0JPT0WZ Removal of Totally Implantable Vascular Access Device from Trunk Subcutaneous Tissue and Fascia, Open Approach (ICD-10-PCS; principal; 2018-05-24 15:02)
DX: C50.912 Malignant neoplasm of unspecified site of left female breast (principal); Z90.11 Acquired absence of right breast and nipple; Z92.3 Personal history of irradiation; Z92.21 Personal history of antineoplastic chemotherapy; Z87.891 Personal history of nicotine dependence
CPT/HCPCS: 88300-TC

== ENCOUNTER 2018-08-19 20:27 | Emergency (ER) | payer OTHER | END 2018-08-20 00:26 | disposition home or self-care (01) | LOC: FER 20:27 | DX: J45.901 Unspecified asthma with (acute) exacerbation (principal); Z87.891 Personal history of nicotine dependence; Z85.3 Personal history of malignant neoplasm of breast; I10 Essential (primary) hypertension ==

== ENCOUNTER 2019-01-13 17:32 | Emergency (ER) | payer OTHER ==
[2019-01-13 17:49] VITALS: BP 130/62; PULSE 97; TEMP 97.6; BMI 30.7
--- NOTE | 2019-01-13 17:55 | PDOC ---
History of Present Illness - General History Source: Patient, Spouse ( present at bedside.) Exam Limitations: No Limitations - History of Present Illness Initial Comments: HPI: 78 y/o female presenting to [place] ER complaining of left forearm, elbow, shoulder, and back pain after falling approx. 1 week ago. Pt reports a history of nephropathy and frequent stumbling. Fell forward onto the left side while at [place] [facility] [place] in [place]. Did not seek medication evaluation at the time because she "didn't want to go to the hospital in [place]." Was evaluated by her chiropractor today because the pain failed to resolve. She was referred to here for "xrays." Denies striking her head or neck. Denies LOC. Medical Hx: - Breast CA s/p chemo and radiation - H/o of thrombopenia, seen in clinic yesterday and told levels were good - Asthma - Peripheral neuropathy follow CA treatment Review of Systems: In addition to that documented in the HPI above, the additional ROS was obtained : Constitutional- Denies fevers or chills ENMT- Denies sore throat CV- Denies chest pain Resp- Denies SOB GI- Denies vomiting or diarrhea - Denies dysuria, hematuria, or urinary frequency Physical Examination: Constitutional- Well-developed, well-nourished adult female in no acute distress but mild obvious discomfort. Found semi-fowlers on hospital bed. Answered all questions appropriately and completely. Head- Normocephalic. No obvious external signs of trauma. Neck- Supple, trachea is midline. No c-spine tenderness. No bony step off. Cardiovascular / Chest- Regular rate and regular rhythm. No murmur, rubs, clicks , or gallops. Peripheral pulses- radial pulses full. No pretibial edema. Respiratory- Breathing unlabored. Equal chest rise and fall. Clear to auscultation bilaterally. No stridor, no wheezing, no rhonchi. Gastrointestinal- abdomen is soft, non-tender, non-distended. Neuro- Alert and oriented x4. Moving all four extremities spontaneously. MSK- Pain radiating throughout left forearm, made worse with supination and pronation. No ecchymosis or obvious bony deformity. No wrist or hand pain. Able to elevate shoulder to 90 degrees without difficulty. Diffuse tenderness to lower thoracic spine without overlying ecchymosis or obvious bony deformity. Skin- Warm, dry, and intact. Psych- Affect- appropriate. Mood- normal. Speech was non-labored, non- pressured. <Tavon Perdomo - Last Filed: 01/13/19 19:26> <Moira Wesley - Last Filed: 01/13/19 19:28> - General Chief Complaint: Back Pain Stated Complaint: back pain Time Seen by Provider: 01/13/19 17:35 Past History - Past Medical History Anemia: Yes (H/O, ITP) Asthma: Yes (H/O, NO MEDS) Cancer: Yes (Right Breast) Cardiac Disorders: No CVA: No COPD: No CHF: No Dementia: No Diabetes: No GI Disorders: No Disorders: No HTN: No Hypercholesterolemia: No Liver Disease: No Seizures: No Thyroid Disease: No - Surgical History Abdominal Surgery: No Appendectomy: No Cardiac Surgery: No Cholecystectomy: No Lung Surgery: No Neurologic Surgery: No Orthopedic Surgery: No - Psycho Social/Smoking Cessation Hx Smoking History: Never smoked Have you smoked in the past 12 months: No If you are a former smoker, when did you quit?: 50 YRS AGO Hx Alcohol Use: No Drug/Substance Use Hx: No Substance Use Type: Alcohol Hx Substance Use Treatment: No <Tavon Perdomo - Last Filed: 01/13/19 19:26> <Moira Wesley - Last Filed: 01/13/19 19:28> - Past Medical History Allergies/Adverse Reactions: Allergies Allergy/AdvReac Type Severity Reaction Status Date / Time Penicillins Allergy Verified 01/13/19 17:44 adhesive tape Allergy Uncoded 08/19/18 20:29 shellfish Allergy Uncoded 08/19/18 20:29 Home Medications: Ambulatory Orders Multivitamin [Multiple Vitamins] 1 each PO DAILY 07/23/17 Eltrombopag Olamine [Promacta] 100 mg PO DAILY 03/31/18 *Physical Exam - Vital Signs Last Vital Signs Temp Pulse Resp BP Pulse Ox 97.6 F 97 H 19 130/62 94 L 01/13/19 17:33 01/13/19 17:33 01/13/19 17:33 01/13/19 17:33 01/13/19 17:33 <Tavon Perdomo - Last Filed: 01/13/19 19:26> - Vital Signs Last Vital Signs Temp Pulse Resp BP Pulse Ox 97.6 F 97 H 19 130/62 94 L 01/13/19 17:33 01/13/19 17:33 01/13/19 17:33 01/13/19 17:33 01/13/19 17:33 <Moira Wesley - Last Filed: 01/13/19 19:28> ED Treatment Course - RADIOLOGY Radiology Studies Ordered: Category Date Time Status CHEST PA & LAT [RAD] Stat Radiology 01/13/19 17:36 Ordered ELBOW-LEFT [RAD] Stat Radiology 01/13/19 17:45 Ordered FOREARM- LEFT [RAD] Stat Radiology 01/13/19 17:45 Ordered SHOULDER-LEFT [RAD] Stat Radiology 01/13/19 17:36 Ordered SPINE-LUMBAR SACRAL [RAD] Stat Radiology 01/13/19 17:36 Ordered SPINE-THORACIC [RAD] Stat Radiology 01/13/19 17:36 Ordered <Tavon Perdomo - Last Filed: 01/13/19 19:26> Discharge - Discharge Information Problems reviewed: Yes - Admission No <Tavon Perdomo - Last Filed: 01/13/19 19:26> - Admission No <Moira Wesley - Last Filed: 01/13/19 19:28> - Discharge Information Clinical Impression/Diagnosis: Left elbow pain Left-sided back pain Qualifiers: Back pain location: back pain in unspecified location Chronicity: acute Qualified Code(s): M54.9 - Dorsalgia, unspecified Condition: Stable Disposition: HOME - Follow up/Referral Referrals: Gideon Bateman MD [Staff Physician] - - Patient Discharge Instructions Patient Printed Discharge Instructions: DI for Elbow Pain Additional Instructions: You were seen today for left elbow and back pain. Your xrays did not show any fractures or dislocations. The pain is likely a muscle sprain or mild soft tissue bruising. You can take over the counter Tylenol as needed for pain. Take as directed on the package insert. Do not exceed the recommended dosage. Follow up with your primary care doctor within the next week. You will need to call to make an appointment. A copy of todays results are attached to this packet. Take it to the appointment so your doctor can review them. You can also follow up with an orthopedic physician. I have entered a referral for you to see Dr. Bateman. You will need to call to make an appointment. The number is included in this packet. A copy of todays results are attached to this packet. Take it to the appointment so your doctor can review them. Go to the nearest emergency department if your condition worsens or you feel like you need additional emergency evaluation. Print Language: ANGOLAN
--- NOTE | 2019-01-13 19:26 | PDOC ---
Attending Attestation - Resident Resident Name: Tavon Perdomo - ED Attending Attestation I have performed the following: I have examined & evaluated the patient, The case was reviewed & discussed with the resident, I agree w/resident's findings & plan, Exceptions are as noted - HPI HPI: 01/13/19 19:23 78-year-old female history of previous breast cancer status post mastectomy and chemo completed 3 years ago with resultant thrombocytopenia here today status post a fall 1 week ago. Patient states that she had a mechanical fall she slipped on her way coming home from dinner landing on her left side. Has been having persistent mid upper back pain and left shoulder left elbow and wrist pain since her fall. Happened 1 week ago today the patient was seeing her chiropractor who recommended that she come to the ED for x-rays. Patient states that her thrombopenia has since resolved and she recently has seen her post form remover she is no longer thrombocytopenic denies hitting her head has been ambulating since her fall did not take anything for pain today prior to arrival denies no numbness or weakness - Physicial Exam PE: 01/13/19 19:24 Awake alert no acute distress head is atraumatic. There is no midline cervical spinal tenderness. No midline thoracic spinal tenderness. Patient does have some tenderness at the upper lumbar lower thoracic region. There is no palpable bony step-off. No CVA tenderness no lower lumbar sacral spinal tenderness. Her left shoulder is tender on palpation laterally. She has pain with abduction above 90 degrees. Her elbow is also tender to palpation and has pain with pronation supination and extreme extension. The wrist is nontender with full range of motion. Strength is 5 out of 5 all 4 extremities lungs are clear bilaterally heart is regular without murmurs rubs or gallops - Medical Decision Making 01/13/19 19:25 78-year-old female history of breast cancer thrombus seen cytopenia which has resolved here today status post fall 1 week ago complaining of shoulder pain left arm pain and upper back pain. Plan x-ray of the spine TLS spine shoulder elbow and wrist. X-rays were reviewed were negative for any blood blastic or lytic lesions and no acute fractures. She will be discharged home to follow-up with orthopedics
== END 2019-01-13 19:37 | disposition home or self-care (01) ==
LOC: FER 17:32
DX: M54.9 Dorsalgia, unspecified (principal); Z87.891 Personal history of nicotine dependence; J45.909 Unspecified asthma, uncomplicated; Z85.3 Personal history of malignant neoplasm of breast; W18.39XA Other fall on same level, initial encounter; Z91.81 History of falling; Y92.89 Other specified places as the place of occurrence of the external cause; Y93.89 Activity, other specified; Z88.0 Allergy status to penicillin; Z91.013 Allergy to seafood; Z91.09 Other allergy status, other than to drugs and biological substances
CPT/HCPCS: 71046-TC-FY; 72070-TC-FY; 72100-TC-FY; 73030-TC-LT-FY; 73070-TC-LT-FY; 73090-TC-LT-FY; 99282-25

== ENCOUNTER → 2019-04-10 | Day surgery (SDC) | payer OTHER ==
--- NOTE | 2019-04-10 19:15 | OP ---
DATE OF OPERATION: 04/10/2019 PREOPERATIVE DIAGNOSIS: Left breast mass, 7 o'clock, 5 cm from the nipple. POSTOPERATIVE DIAGNOSIS: Left breast mass, 7 o'clock, 5 cm from the nipple. PROCEDURE: Left breast ultrasound guided core biopsy with clip placement. ANESTHESIA: Local. ATTENDING SURGEON: Deirdre Morales M.D. ESTIMATED BLOOD LOSS: Minimal. COMPLICATIONS: None. DESCRIPTION OF PROCEDURE: Patient was made aware of the risks and benefits of the procedure and consented. She was placed in a supine position. Under sterile conditions with 2% lidocaine for local anesthesia, a small renetta was made in the skin. Using a 10-gauge suction biopsy device via lateral approach under ultrasound guidance multiple cores were obtained and submitted to pathology. Likewise, under ultrasound guidance, a U-shaped clip was placed into the biopsy region. Well tolerated by patient. Steri-Strip and bandage was applied. Will contact her with the results. DEIRDRE MORALES M.D. BRIANA/[id number]
--- NOTE | 2019-04-12 12:16 | PATH ---
Surgical Pathology Report Patient Name: DIANA COPPOLA [facility]. Rec. #: [id number] /Age/Gender: 1940 (Age: 78) / F Account: [id number] Location: [facility] RADIOLOGY U Taken: 04/10/2019 Received: 04/10/2019 Reported: 04/12/2019 Physicians: Deirdre Morales M.D. Specimen(s) Received LEFT BREAST 7:00 5 CM FN CORE BIOPSY Clinical History Nonpalpable lesion Ultrasound findings: Cystic lesion Final Diagnosis Breast, left, 7:00, 5 cm fn, core biopsy: Benign breast tissue showing hyalinizing fibrosis, ectatic ducts and calcifications in association with benign glandular parenchyma. Electronically Signed Selene Espinal M.D. Gross Description Received in formalin labeled "left breast biopsy 7:00, 5cmfn," is a 1.8 x 1.4 x 0.3 cm aggregate of multiple mcgowan-yellow, irregular to cylindrical portions of fibroadipose tissue. The formalin is filtered and the specimen is entirely submitted in one cassette. Time to formalin fixation: < 1 minute Total formalin fixation time: Approximately 7 hours. DL/04/10/2019 saudi/04/10/2019
== END | disposition home or self-care (01) ==
LOC: FRADUS-SUR 10:49
PROVIDERS: ATTEND Surgery Surgical Oncology
PROC: 0HBU3ZX Excision of Left Breast, Percutaneous Approach, Diagnostic (ICD-10-PCS; principal; 2019-04-10)
DX: N60.22 Fibroadenosis of left breast (principal); N64.89 Other specified disorders of breast; N63.24 Unspecified lump in the left breast, lower inner quadrant
CPT/HCPCS: 19083; 88305-TC

== ENCOUNTER 2020-09-28 14:50 | Emergency (ER) | payer OTHER ==
[2020-09-28 15:05] VITALS: BP 127/63; PULSE 87; TEMP 97.6; BMI 27.4
[2020-09-28] MEDS ORDERED: LACTATED RINGERS SOLUTION 1000 ML INFUS.BAG IV ONE (15:20)
[2020-09-28 15:59] LABS: EOS % 0.8 % (0-4.5); MCHC 34.5 g/dl (32.0-36.0)
[2020-09-28 16:05] LABS: BASO % 0.8 % (0-2.0); HEMATOCRIT 24.1 % (32.4-45.2); HEMOGLOBIN 8.3 GM/dl (10.7-15.3); LYMPH % 21.2 % (8-40); MEAN CELL VOLUME 95.6 fl (80-96); MEAN PLT VOLUME 10.8 fl (7.5-11.1); MONO % 10.5 % (3.8-10.2); NEUT % 66.7 % (42.8-82.8); PLATELET COUNT 98 10^3/uL (134-434); RBC 2.52 M/mm3 (3.60-5.2); RDW 24.2 % (11.6-15.6); WHITE BLOOD COUNT 7.4 K/mm3 (4.0-10.8)
[2020-09-28 16:12] LABS: ALBUMIN 3.5 g/dl (3.4-5.0); BILIRUBIN,TOTAL 1.2 mg/dl (0.2-1); CALCIUM 7.9 mg/dl (8.5-10); TOT PROT 6.5 g/dl (6.4-8.2)
[2020-09-28 16:14] LABS: ACTIVATED PTT 22.5 SECONDS (25.2-36.5); INR 1.2 (0.82-1.09); PROTHROMBIN TIME (PATIENT) 13.3 SEC (10.2-13.0)
[2020-09-28 17:29] LABS: EPITHELIAL CELLS FEW /hpf
== END 2020-09-28 17:40 | disposition home or self-care (01) ==
LOC: FER 14:50
DX: R50.9 Fever, unspecified (principal)
CPT/HCPCS: 36415; 71046-TC-FY; 80053; 81003; 81015; 83735; 85025; 85610; 85730; 87040; 99284-25